=== PATIENT | male | born 1960 | race Caucasian/White ===

== ENCOUNTER 2021-05-05 12:39 | Emergency (ER) | payer SELFPAY ==
[~2021-05-05] VITALS: Ht 167.6 cm; Wt 88.5 kg
== END 2021-05-05 16:04 | disposition home or self-care (01) ==
LOC: ER1 12:39
DX: U07.1 COVID-19 (principal); E78.5 Hyperlipidemia, unspecified; Z90.49 Acquired absence of other specified parts of digestive tract; Z23 Encounter for immunization
CPT/HCPCS: 99284; M0243